=== PATIENT | male | born 1975 | race Caucasian/White ===

== ENCOUNTER 2025-07-28 08:53 | Emergency (ER) | payer BC, SELFPAY ==
[2025-07-28 09:07] VITALS: BP 220/120; PULSE 72; RESP 16; TEMP 37; O2SAT 98
--- NOTE | 2025-07-28 09:28 | ED_ITS ---
HPI - General Adult General Chief complaint: Skin/Abscess/Foreign Body Stated complaint: R Leg Pain Time Seen by Provider: 07/28/25 09:35 Source: patient, RN notes reviewed and old records reviewed Mode of arrival: ambulatory Limitations: no limitations History of Present Illness HPI narrative: 50-year-old male presents to the [facility] with complaints of right lower leg pain, redness and swelling. States that started this morning. Patient with a very distant history of high blood pressure, used to be on medications. Recently moved to the area. Has not been taking care of himself. Treatments prior to arrival: none Related Data Home Medications ?Medication ?Instructions ?Recorded ?Confirmed ?Last Taken ?Type No Home Medications 07/28/25 07/28/25 U nknown History Allergies Allergy/AdvReac Type Severity Reaction Status Date / Time No Known Allergies Allergy Verified 07/28/25 09:12 Review of Systems 2 Review of Systems: All systems reviewed & are unremarkable except as noted in HPI and below Constitutional: Constitutional: Reports no additional constitutional complaints Cardiovascular: Cardiovascular: Reports no additional cardiovascular complaints, Denies chest pain and Denies dyspnea Respiratory: Respiratory: Reports no additional respiratory complaints, Denies chest congestion, Denies cough and Denies dyspnea Musculoskeletal: Musculoskeletal: Reports as per HPI Integumentary/Breasts: Skin/Breast: Reports as per HPI PMFSH Comments At the time of my signature, I reviewed and agree with the nursing past medical, surgical, social, and family history. There is no relevant family history pertinent to the patient complaint. Exam 2 Const: General: cooperative, healthy appearing, comfortable, no acute distress, well developed, alert and well nourished Nutritional Appearance: w ell nourished and obese Orientation/consciousness: patient oriented x3 L imitations: no limitations HENMT: Head: normal to inspection Mouth: Yes Normal oral and palatal mucosa present, Yes lip normal, Yes tongue normal and Yes moist mucous membranes Eyes: General: appearance normal, both eyes and all related structures A lignment and Position: alignment normal Neck: Neck: normal visual inspection, full ROM, no lymphadenopathy and no meningeal signs Chest: Chest palpation & inspection: normal inspection of the chest Resp: Effort & Inspection: normal respiratory effort and able to speak in complete sentences Cardio: Rate: regular rate Neuro: General: patient oriented x3, gait normal, moves all extremities and no meningeal signs Cognition (Neuro): normal cognition Speech: normal speech Gait exam (Neuro): Normal gait present Extrem: General: normal to inspection, full ROM, capillary refill normal and normal gait Right lower extremity: lower leg Details: erythema, tenderness, non-pitting edema and warmth Ankle/foot/toe images: 1. 44cm swelling, erythema, warmth, tenderness 2. 39cm Psych: Appearance: grossly normal and well kempt Mental Status: mental status grossly normal Speech and movement: Normal speech and movement present and Clear speech present Affect: normal affect Attitude: cooperative Course Course Level of Care: Express Care Visit Vital Signs Vital signs: Vital Signs Temperature 98.6 F 07/28/25 09:07 Pulse Rate 72 07/28/25 09:07 Respiratory Rate 16 07/28/25 09:07 Blood Pressure 220/120 H 07/28/25 09:07 Pulse Oximetry 98 07/28/25 09:07 Oxygen Delivery Room Air 07/28/25 09:07 Temperature 98.6 F 07/28/25 09:07 Pulse Rate 72 07/28/25 09:07 Respiratory Rate 16 07/28/25 09:07 Blood Pressure 230/120 H 07/28/25 09:43 Pulse Oximetry 98 07/28/25 09:07 Oxygen Delivery Room Air 07/28/25 09:07 Reviewed Transfer Transfered to: [place] Transportation: Other (POV, declined EMS) Transfer rationale: Patient with elevated blood pressure, no treatment, no primary care provider also rule out DVT due to redness, swelling and pain of the right lower leg Accepting physician: Dr. Stroud Medical Decision Making [facility] Narrative Medical decision making narrative: Patient sitting comfortably in exam room. Patient is nontoxic. He patient's blood pressure is elevated. Has a distant history of hypertension but has not been on medications in over a year Patient with swelling to the right lower leg, concern for DVT Patient being transferred for higher level of care Declined EMS Discussed transfer to an ER. Go directly to the ER, EMS was offered, patient declined All questions have been answered, and the patient deny any further questions. Some parts of this dictation were generated by voice recognition software and may contain typographical and/or grammatical inaccuracies. Medical Records Medical records reviewed: Yes I reviewed the external patient's medical records. Vital Signs Vital Signs: Vital Signs Temperature 98.6 F 07/28/25 09:07 Pulse Rate 72 07/28/25 09:07 Respiratory Rate 16 07/28/25 09:07 Blood Pressure 220/120 H 07/28/25 09:07 Pulse Oximetry 98 07/28/25 09:07 Oxygen Delivery Room Air 07/28/25 09:07 Temperature 98.6 F 07/28/25 09:07 Pulse Rate 72 07/28/25 09:07 Respiratory Rate 16 07/28/25 09:07 Blood Pressure 230/120 H 07/28/25 09:43 Pulse Oximetry 98 07/28/25 09:07 Oxygen Delivery Room Air 07/28/25 09:07 Reviewed Lab Data Lab results reviewed: Yes I reviewed the patient's lab results. Labs: Reviewed Critical Care Time Critical Care Time Critical Care Time: No Discharge Plan Discharge Clinical Impression: Right leg swelling, Elevated blood pressure reading Patient Disposition: Acute Care Hospital Condition: Stable Patient Language: Amharic Prescriptions: No Action No Home Medications Follow-up/Referrals: PHYSICIAN,GALLEY COOK [Primary Care Provider, Internal Medicine]
[2025-07-28 09:43] VITALS: BP 230/120
== END 2025-07-28 09:48 | disposition short-term general hospital (02) ==
LOC: EXPGOSH 08:58
PROVIDERS: Emergency Provider Nurse Practitioner
DX: R22.41 Localized swelling, mass and lump, right lower limb (principal); R03.0 Elevated blood-pressure reading, without diagnosis of hypertension
CPT/HCPCS: 99202; G0463

== ENCOUNTER 2025-07-28 10:06 | Emergency (ER) | payer BC, SELFPAY ==
--- NOTE | ~2025-07-28 | US_ITS ---
EXAMINATION: US venous doppler LE RT, 07/28/2025 11:28 CDT HISTORY: sent from ; r/o DVT Comparison: None Technique: Rolon-scale and color Doppler images were attempted of the lower saphenofemoral junction, common femoral vein,superficial femoral vein, proximal deep femoral vein, proximal deep femoral vein, popliteal vein and posterior tibial veins. Findings: Deep Venous System:Normal flow, augmentation and compressibility. No echogenic thrombus identified. The contralateral saphenofemoral junction appears unremarkable. Superficial Venous SystemNo superficial thrombophlebitis. Soft tissues: Soft tissues are unremarkable. Impression: Negative for DVT. Reviewed, dictated and finalized at location A. Impression: Negative for DVT.
--- NOTE | ~2025-07-28 | XR_ITS ---
EXAMINATION: XR chest 1V portable COMPARISON: No comparisons available. HISTORY: Hypertension FINDINGS: The lungs are clear, no effusion. No pneumothorax. Heart is normal size. Mediastinal and hilar contours are within normal limits. Bony thorax no acute abnormality. Miscellaneous: None Impression: No acute cardiopulmonary abnormality. Reviewed, dictated and finalized at location A. Impression: No acute cardiopulmonary abnormality.
[2025-07-28 10:09] VITALS: BP 191/107; PULSE 70; RESP 18; TEMP 36.2; O2SAT 97
--- NOTE | 2025-07-28 10:22 | ED_ITS ---
HPI - General Adult General Chief complaint: Recheck/Abnormal Lab/Rx Stated complaint: htn Time Seen by Provider: 07/28/25 10:10 Source: patient Mode of arrival: ambulatory Limitations: no limitations History of Present Illness HPI narrative: 50 years old white male referred to our emergency room from urgent care because of elevated blood pressure. Patient went to urgent care today because of redness and swelling of the right lower leg noticed last night. Patient was standing on the grass for the last few days possible insect bites In the ED patient denies any fever, chills, nausea, vomiting him a chest pain, shortness of breath, back pain or abdominal pain. History of hypertension last medicine intake over 2 years ago. Related Data Allergies Allergy/AdvReac Type Severity Reaction Status Date / Time No Known Allergies Allergy Verified 07/28/25 10:35 Review of Systems 2 Review of Systems: All systems reviewed & are unremarkable except as noted in HPI and below Exam 2 Narrative: General appearance: Well-developed, well-nourished Skin: Normal color, Head: Normocephalic, nontraumatic Eyes: Clear conjunctiva ENT: Oropharynx normal, ears normal, nose normal Neck: Supple, nontender Chest and respiratory: Airway patent, no respiratory distress, no accessory muscle use Heart: Regular rate/rhythm Abdomen: Soft, nontender, no organomegaly, quiet bowel sounds Vascular: Normal peripheral pulses, normal capillary refill. Musculoskeletal: Right lower leg showing diffuse erythema, warmth, tenderness distally, no wounds or ulceration, 3+ edema left leg 2+ edema Neurologic: Alert and oriented ?3, PITCH FILLER is normal as tested, no gross motor deficit Course Vital Signs Vital signs: Vital Signs Temperature 97.2 F L 07/28/25 10:09 Pulse Rate 70 07/28/25 10:09 Respiratory Rate 18 07/28/25 10:09 Blood Pressure 191/107 H 07/28/25 10:09 Pulse Oximetry 97 07/28/25 10:09 Temperature 97.2 F L 07/28/25 10:09 Pulse Rate 62 07/28/25 12:35 Respiratory Rate 16 07/28/25 12:35 Blood Pressure 176/88 H 07/28/25 12:35 Pulse Oximetry 97 07/28/25 12:35 Medical Decision Making [facility] Narrative Medical decision making narrative: Patient referred to our ED from urgent care because of swelling and redness of the right lower leg Vital signs showing blood pressure 191/107 otherwise within normal limit, patient does not take his hypertension medication for over 2 years Physical examination showing erythema, warmth and tenderness right lower leg around the ankle area, 3+ edema Differential diagnosis cellulitis, deep vein thrombosis, uncontrolled hypertension, patient noncompliance with medication, electrolyte imbalance, dehydration, congestive heart failure Blood workup today includes CBC, CMP, troponin, pro BMP showed pro BNP 193 otherwise within normal limit Chest x-ray showed no acute abnormality Venous Doppler right lower extremity negative for deep vein thrombosis EKG on arrival shows sinus bradycardia 59 beats per minute nonspecific ST T-wave abnormality, abnormal EKG, no previous EKG available for comparison Patient received labetalol 20 mg IV, current blood pressure 176/88. Diagnosis right lower leg cellulitis and uncontrolled hypertension, noncompliance patient Discharged on losartan 100 mg/hydrochlorothiazide 12.5 daily, and Keflex The pt was discharged to home.the pt,s condition upon discharge was fair,education was provided to the pt in reference to the final impression,discharge study results,treatment,prognosis and need for follow up . Vital Signs Vital Signs: Vital Signs Temperature 97.2 F L 07/28/25 10:09 Pulse Rate 70 07/28/25 10:09 Respiratory Rate 18 07/28/25 10:09 Blood Pressure 191/107 H 07/28/25 10:09 Pulse Oximetry 97 07/28/25 10:09 Temperature 97.2 F L 07/28/25 10:09 Pulse Rate 62 07/28/25 12:35 Respiratory Rate 16 07/28/25 12:35 Blood Pressure 176/88 H 07/28/25 12:35 Pulse Oximetry 97 07/28/25 12:35 Lab Data 07/28/25 11:07 07/28/25 11:07 Labs: Lab Results 07/28/25 Range/Units 11:07 WBC 9.2 (4.5-10.0) K/mm3 RBC 4.55 L (4.6-6.20) M/mm3 Hgb 13.9 L (14.0-18.0) g/dL Hct 40.8 L (42.0-52.0) % MCV 89.7 (80-100) fl MCH 30.5 (26-34) pg MCHC 34.1 (32-36) g/dl RDW 12.7 (11.5-14.5) % Plt Count 165 (150-375) k/mm3 MPV 10.2 (7.4-10.4) fl Immature Gran % (Auto) 0.5 (0-0.5) % Neut % (Auto) 65.7 (45.5-73.1) % Lymph % (Auto) 19.3 (18.3-44.2) % [place] % (Auto) 13.6 H (2.6-8.5) % Eos % (Auto) 0.4 (0-4.4) % Baso % (Auto) 0.5 (0.2-1.2) % Lymph # (Auto) 1.77 (0.9-3.2) K/mm3 [place] # (Auto) 1.3 H (0.1-0.6) K/mm3 Eos # (Auto) 0.0 (0-0.3) K/mm3 Baso # (Auto) 0.1 (0.0-0.1) K/mm3 Abs Immat Gran (auto) 0.05 H (0.00-0.031) K/mm3 Absolute Neuts (auto) 6.0 (1.3-6.7) K/mm3 Absolute Nucleated RBC 0.000 (0.0-0.012) K/mm3 Nucleated RBC % 0.0 (0.0-0.2) % PT 13.3 (11.1-14.7) Seconds INR 1.0 APTT 25.9 (22.3-36.8) Seconds Sodium 137 (137-145) mmol/L Potassium 3.8 (3.4-5.0) mmol/L Chloride 103 (98-107) mmol/L Carbon Dioxide 27 (22-30) mmol/L Anion Gap 7 (4-12) mmol/L BUN 14 (9-20) mg/dL Creatinine 0.71 (0.7-1.3) mg/dL Estim Creat Clear Calc 161 ml/min Estimated GFR > 60 (59 - ) Glucose 114 H (65-110) mg/dL Calcium 8.5 (8.4-10.2) mg/dL Total Bilirubin 0.7 (0.2-1.3) mg/dL AST 38 (17-59) U/L ALT 35 (6-50) U/L Alkaline Phosphatase 69 (38-126) U/L Troponin I < 0.012 (0.000-0.034) ng/mL NT-Pro-B Natriuret Pep 193 H (19.9-100) pg/mL Total Protein 7.1 (6.3-8.2) g/dL Albumin 3.7 (3.5-5.1) g/dL Imaging Data Radiologist's impression: Impressions Venous Doppler Study 07/28/25 12:13 Impression: Negative for DVT. Chest X-Ray 07/28/25 12:30 Impression: No acute cardiopulmonary abnormality. ECG Data EKG #1: Attestation: I personally reviewed and interpreted this ECG as follows: ECG completion date: 07/28/25 Interpretation: Sinus bradycardia 59 beats per minute nonspecific ST T-wave abnormality, abnormal EKG, no previous EKG available for comparison Critical Care Time Critical Care Time Critical Care Time: No Discharge Plan Discharge Clinical Impression: Cellulitis of leg, right, Hypertension, uncontrolled Patient Disposition: Home Condition: Stable Instructions: Antibiotic Form, Cellulitis (ED), Chronic Hypertension (DC), Leg Edema (ED) Additional Instructions: Return if symptoms are worsening , call your family physician for appointment, take Tylenol as as needed for aches and pain, continue home medications. Compression stocking Keep leg elevated I ice pack as needed Patient Language: Kinyarwanda Prescriptions: New cephalexin 500 mg capsule 500 mg PO Q6H 10 Days Qty: 40 0RF losartan-hydrochlorothiazide 100-12.5 mg tablet 1 tablet PO DAILY Qty: 30 0RF Follow-up/Referrals: PHYSICIAN,[employer] OPERATOR [Primary Care Provider, Internal Medicine] Jack Segura MD [Physician, Family Practice] - 07/31/25
[2025-07-28 10:35] VITALS: BP 205/119; PULSE 65; RESP 17; O2SAT 96
--- NOTE | 2025-07-28 10:41 | PC.NURSE ---
Pt states the medications he used to take for his HTN include the following Felodipine 5mg Losartan 100mg Chlorthalidone 25mg
--- NOTE | 2025-07-28 10:50 | ECG_ITS ---
Test Date: 2025-07-28 11:10:39 Measurements Intervals [place] Rate: 59 P: 8 [place]: 167 QRS: -1 QRSD: 102 T: 64 QT: 383 QTc: 382 Interpretive Statements SINUS BRADYCARDIA NONSPECIFIC ST & T-WAVE ABNORMALITY WARNING: DATA QUALITY MAY AFFECT INTERPRETATION ABNORMAL ECG No previous ECG available for comparison Electronically Signed On 07-28-2025 12:34:20 CDT by Tawanda Lockwood M.D.
[2025-07-28 11:12] LABS: Hematocrit 40.8 % (42.0-52.0); Hemoglobin 13.9 g/dL (14.0-18.0); Immature Granulocyte Percent A 0.5 % (0-0.5); Lymphocytes Absolute Auto 1.77 K/mm3 (0.9-3.2); Mean Corpuscular HGB Conc 34.1 g/dl (32-36); Mean Corpuscular Hemoglobin 30.5 pg (26-34); Mean Corpuscular Volume 89.7 fl (80-100); Nucleated Red Blood Cells Absolute Auto 0.000 K/mm3 (0.0-0.012); Nucleated Red Blood Cells Perc 0.0 % (0.0-0.2); Platelet Count Result 165 k/mm3 (150-375); Red Blood Count 4.55 M/mm3 (4.6-6.20); White Blood Count 9.2 K/mm3 (4.5-10.0)
[2025-07-28 11:24] LABS: Alanine Aminotransferase 35 U/L (6-50); Albumin Level 3.7 g/dL (3.5-5.1); Alkaline Phosphatase 69 U/L (38-126); Anion Gap 7 mmol/L (4-12); Aspartate Amino Transferase 38 U/L (17-59); Bilirubin,Total 0.7 mg/dL (0.2-1.3); Blood Urea Nitrogen 14 mg/dL (9-20); Calcium 8.5 mg/dL (8.4-10.2); Carbon Dioxide 27 mmol/L (22-30); Chloride 103 mmol/L (98-107); Estimated CRCL calculation 161 ml/min; Estimated Glomerular Filt Rate > 60; Glucose 114 mg/dL (65-110); Potassium 3.8 mmol/L (3.4-5.0); Sodium 137 mmol/L (137-145); Total Protein 7.1 g/dL (6.3-8.2)
[2025-07-28 11:26] LABS: INR 1.0; Prothrombin Time 13.3 Seconds (11.1-14.7)
[2025-07-28 11:27] LABS: Partial Thromboplastin Time 25.9 Seconds (22.3-36.8)
[2025-07-28 11:46] VITALS: BP 196/83; PULSE 62; RESP 16; O2SAT 96
[2025-07-28 11:49] LABS: NT Pro B Type Natriuretic Pept 193 pg/mL (19.9-100); Troponin I < 0.012 ng/mL (0.000-0.034)
[2025-07-28 12:35] VITALS: BP 176/88; PULSE 62; RESP 16; O2SAT 97
[2025-07-28 12:59] VITALS: BP 162/95; PULSE 62; RESP 18; O2SAT 96
== END 2025-07-28 13:00 | disposition home or self-care (01) ==
PROVIDERS: Emergency Provider Emergency Medicine
DX: L03.115 Cellulitis of right lower limb (principal); I10 Essential (primary) hypertension; R00.1 Bradycardia, unspecified; R94.31 Abnormal electrocardiogram [ECG] [EKG]
CPT/HCPCS: 36415; 71045; 80053; 83880; 84484; 85025; 85610; 85730; 93005; 93971; 96374; 99284